=== PATIENT | female | born 1980 | race Caucasian/White ===

== ENCOUNTER 2023-11-18 10:05 | Outpatient (REF) | payer OTHER, SELFPAY ==
--- NOTE | ~2023-11-18 | XR_ITS ---
EXAM: X-RAYS BILATERAL KNEES CLINICAL INDICATION: Pain in bilateral knees. COMPARISON: None. TECHNIQUE: 3 views of each knee. FINDINGS: RIGHT KNEE: Mild narrowing of the medial compartment. No significant joint effusion. Small spur along the anterosuperior aspect of the patella. LEFT KNEE: Trace joint effusion. Mild narrowing of the medial compartment. 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
--- NOTE | ~2023-11-18 | XR_ITS ---
EXAM: X-RAYS BILATERAL KNEES CLINICAL INDICATION: Pain in bilateral knees. COMPARISON: None. TECHNIQUE: 3 views of each knee. FINDINGS: RIGHT KNEE: Mild narrowing of the medial compartment. No significant joint effusion. Small spur along the anterosuperior aspect of the patella. LEFT KNEE: Trace joint effusion. Mild narrowing of the medial compartment. 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
== END 2023-11-18 10:06 | disposition home or self-care (01) ==
LOC: HO.HOSX 10:05
PROVIDERS: Visit Provider Orthopaedic Surgery
DX: M25.561 Pain in right knee (principal); M25.562 Pain in left knee
CPT/HCPCS: 73562; 99202

== ENCOUNTER 2023-11-18 13:48 | Outpatient (AMB) | payer MEDICARE, SELFPAY ==
--- NOTE | 2023-11-18 14:10 | MHC.OFFVIS ---
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 Patient reports her pain has been going on for about a year and is a 5 on the 1-10 pain scale. She states her pain is about the same on both sides. Denies injury, injections and surgery. She is useing tylenol and a heating pad for her pain with some relief. The patient states that she has ?bumped into things? on several occasions. The patient is blind. She denies any locking or giving way. Allergies ibuprofen Allergy (Mild, Verified 11/18/23 14:18) rash Medication List - Last Reconciled 11/18/23 by Carlos Garber MD cetirizine (Allergy Relief (cetirizine)) mg PO fluticasone propionate 50 mcg/actuation intranasal montelukast 10 mg PO DAILY PFS Social History (Updated 11/18/23 @ 14:19 by Annetta Vasquez [facility]) Current occupational status: disabled Current occupation: Right hand dominate Physical Exam Const Other: Well-nourished well-developed very friendly female awake alert and oriented x3 in no acute distress Extrem Other: Bilateral lower extremity examination shows good capillary refill, no skin lesions noted, normal sensation light touch Bilateral knee examination shows minimal effusions, no crepitus with range of motion, tenderness along her medial joint lines, positive Roman's tests, no instability Results Reviewed Results Reviewed: X-rays of the patient's bilateral knee show minimal joint space narrowing, no acute bony abnormalities Assessment & Plan Assessment & Plan (1) Right knee pain: Code(s): M25.561 - Pain in right knee (2) Left knee pain: Code(s): M25.562 - Pain in left knee Plan Ms. Barney presents with bilateral knee pains due to bony contusion and possible medial meniscus tearing. I had a lengthy discussion with the patient regarding the treatment options. At this point the patient's symptoms are tolerable to her. We will hold off on an injection. She will follow up with me on an as-needed basis should her symptoms worsen in any way. Feel free to call me at any time should questions regarding her orthopedic management arise. Thank you very much for asking me to see this very friendly patient. I spent 22 minutes in reviewing the patient's records and imaging studies, seeing the patient and documenting in the medical record. Orders: Orders XR knee LT 3V Today M25.562 - Pain in left knee XR knee RT 3V Today M25.561 - Pain in right knee Coding Level of Care Code New Pt Level 2 (32545) Diagnoses Right knee pain M25.561 Left knee pain M25.562
== END 2023-11-18 14:40 | disposition home or self-care (01) ==
PROVIDERS: PCP Physician Assistant Medical; Visit Provider Orthopaedic Surgery
DX: M25.561 Pain in right knee (principal); M25.562 Pain in left knee
CPT/HCPCS: 99202

== ENCOUNTER 2024-11-16 08:20 | Outpatient (AMB) | payer OTHER, SELFPAY ==
--- NOTE | 2024-11-16 09:13 | MHC.OFFWIV ---
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: No Allergies ibuprofen Allergy (Mild, Verified 11/16/24 09:31) rash Medication List - Last Reconciled 11/16/24 by Ade Frias, [facility] fluticasone propionate 50 mcg/actuation intranasal levocetirizine 5 mg PO DAILY montelukast 10 mg PO DAILY Do you need a note to return to daycare/school/sports/work: No HPI HPI Comments History of Present Illness Details Here today URI, accompanied by Mom Sick for 10 days C/o cough, headache, pressure in right side of face, to include dental pain, loss of taste and smell on Friday; Did not rest for COVID Exposed to child w/ similar sx (covid negative) Tried Dayquil, nyquil and coricidin w/ short lived relief. Denies fever, chills, sore throat. Exam Awake alert NAD Sclera and conjunctiva clear bilat Nares patent, turbinates pale & edematous, + r maxillary sinus tenderness with palpation bilat TM intact and clear bilat MMM, pharynx WNL RRR LS CTAB, cough w/o distress Plan Cont flonase Cont allergy shots Ok for nasal saline treat w/ augmentin take w/ food repotrs yeast infection w/ ab. Send [facility] on reason to [facility] Social History (Updated 11/18/23 @ 14:19 by Annetta Vasquez CMA) Patient Tobacco Use Status: Never used Tobacco Current occupational status: disabled Current occupation: Right hand dominate Physical Exam Vital Signs: Last Vital Signs Temp 98.2 F 11/16/24 09:17 Pulse 104 H 11/16/24 09:17 Resp 13 11/16/24 09:17 BP 118/68 11/16/24 09:17 Pulse Ox 98 11/16/24 09:17 Oxygen Delivery Method Room Air 11/16/24 09:17 BMI result Body Mass Index 21.6 Assessment & Plan Assessment & Plan (1) Acute sinus infection: Code(s): J01.90 - Acute sinusitis, unspecified Qualifiers: Sinusitis location: maxillary Recurrence: non-recurrent Qualified Code(s): J01.00 - Acute maxillary sinusitis, unspecified (2) Environmental allergies: Code(s): Z91.09 - Other allergy status, other than to drugs and biological substances Plan . Medications: New amoxicillin-pot clavulanate 875-125 mg 1 tab PO BID 7 days 14 tabs 0RF fluconazole take 1 tab day 1, repeat second dose on day 3 150 mg PO Q3D 2 tabs 0RF Coding Level of Care Code Est Pt Level 3 (71124) Diagnoses Acute non-recurrent maxillary sinusitis J01.00 Sinusitis location: maxillary Recurrence: non-recurrent Environmental allergies Z91.09
[2024-11-16 09:17] VITALS: BP 118/68; PULSE 104; RESP 13; TEMP 36.8; O2SAT 98; BMI 21.6
== END 2024-11-16 09:41 | disposition home or self-care (01) ==
LOC: HO.HMCWIW 08:20
PROVIDERS: PCP Physician Assistant Medical; Visit Provider Nurse Practitioner Family
DX: J01.00 Acute maxillary sinusitis, unspecified (principal); Z91.09 Other allergy status, other than to drugs and biological substances

== ENCOUNTER → 2024-11-16 08:20 | Outpatient (BNVA) | payer OTHER, SELFPAY | PROVIDERS: PCP Physician Assistant Medical; Visit Provider Nurse Practitioner Family | DX: J01.00 Acute maxillary sinusitis, unspecified (principal); Z91.09 Other allergy status, other than to drugs and biological substances | CPT/HCPCS: 99212 ==